=== PATIENT | male | born 1980 | race Caucasian/White ===

== ENCOUNTER 2017-05-24 00:34 | Emergency (ER) | payer MEDICARE, MEDICAID ==
[~2017-05-24] VITALS: Ht 177.8 cm; Wt 113.4 kg
--- NOTE | 2017-05-24 00:44 | NUR ---
PT [facility]IBA[id number] FOR BILATERAL LEG PAIN X 3 DAYS. PT AMBULATORY VIA PERSONAL WC. PT AOX3 RR EVEN AND UNLABORED. NO SOB NOTED. NAD NOTED. NVD AT THIS TIME. PT GOWNED AND PLACED ON MONITOR WAITING FOR MD WOLFF.
--- NOTE | 2017-05-24 00:52 | NUR ---
DR. [place] AT BEDSIDE FOR EVAL.
--- NOTE | 2017-05-24 01:32 | NUR ---
TIFFANIE AT BEDSIDE
--- NOTE | 2017-05-24 01:52 | NUR ---
PT REFUSED ULTZ, RISK AND BENEFITS EXPLAINED X 3. PT STRONGLY REFUSED. PT BEGAN TO BE VERBALLY AGGRESSIVE USING RACIAL SLURS TOWARDS STAFF. MD AWARE. APPROACHED/ SPOKE TO PT CALMLY. PT REFUSED CARE AND WALKED OUT WITH ALL PERSONAL BELONGINGS.
[2017-05-24 02:00] VITALS: BP 132/66
== END 2017-05-24 02:00 | disposition left against medical advice (07) ==
LOC: ER 00:40
DX: M79.661 Pain in right lower leg (principal); M79.662 Pain in left lower leg
CPT/HCPCS: A4606; Z7610